=== PATIENT | female | born 1970 | race Caucasian/White ===

== ENCOUNTER 2018-05-02 17:07 | Emergency (ER) | payer OTHER, MEDICAID ==
[2018-05-02 18:08] LABS: ADD MAN DIFF? NO
[2018-05-02 18:21] LABS: BASOPHILS % 0.4 % (0.0-2.0); EOSINOPHILS # 0.1 10^3/ul (0.0-0.5); EOSINOPHILS % 0.9 % (0.0-7.0); HEMATOCRIT 39.9 % (37.0-47.0); HEMOGLOBIN 13.7 g/dl (12.0-16.0); LYMPHOCYTES # 1.8 10^3/ul (0.8-2.9); LYMPHOCYTES % 33.5 % (15.0-51.0); MEAN CORPUSCULAR HEMOGLOBIN 30.6 pg (29.0-33.0); MEAN CORPUSCULAR HGB CONC 34.3 g/dl (32.0-37.0); MEAN CORPUSCULAR VOLUME 89.3 fl (82.0-101.0); MEAN PLATELET VOLUME 9.3 fl (7.4-10.4); MONOCYTE # 0.5 10^3/ul (0.3-0.9); MONOCYTES % 8.6 % (0.0-11.0); NEUTROPHILS % 55.9 % (39.0-77.0); PLATELET COUNT 268 10^3/UL (140-415); RED BLOOD COUNT 4.47 10^6/ul (4.20-5.40); RED CELL DISTRIBUTION WIDTH 11.8 % (11.5-14.5)
[2018-05-02 18:21] LABS: WHITE BLOOD COUNT 5.4 10^3/ul (4.8-10.8)
[2018-05-02 18:25] LABS: PROTIME 13.3 Sec (11.9-14.9)
[2018-05-02 18:26] LABS: PARTIAL THROMBOPLASTIN TIME 30.6 Sec (23.0-35.0)
[2018-05-02 18:29] LABS: ANION GAP 14 (8-16); BLOOD UREA NITROGEN 11 mg/dl (7-20); CALCIUM 9.8 mg/dl (8.4-10.2); CARBON DIOXIDE 27 mmol/L (21-31); CHLORIDE 100 mmol/L (97-110); CHOL/HDL RATIO 4.8 RATIO; CHOLESTEROL 230 mg/dl (100-200); GLUCOSE 90 mg/dl (70-220); HDL CHOLESTEROL 47 mg/dl (37-92); LDL CHOLESTEROL,CALCULATED 150 mg/dl; POTASSIUM 3.9 mmol/L (3.5-5.1); SODIUM 137 mmol/L (135-144); TRIGLYCERIDES 166 mg/dl (0-149)
[2018-05-02 18:40] LABS: TROPONIN-I < 0.012 ng/ml (0.000-0.120)
[2018-05-02 18:41] LABS: HEMOGLOBIN A1C 5.1 % (0-5.9)
[2018-05-02] MEDS: METOCLOPRAMIDE 10 MG INJ IV (19:24)
[2018-05-02] MEDS: KETOROLAC 30 MG INJ IV (19:25)
== END 2018-05-02 20:07 | disposition home or self-care (01) ==
LOC: E/R 17:07
DX: R20.2 Paresthesia of skin (principal); R51 Headache; I63.9 Cerebral infarction, unspecified; Z91.010 Allergy to peanuts
CPT/HCPCS: 36415; 70450; 71045; 80048; 80061; 83036; 84484; 84703; 85025; 85610; 85730; 93005; 96374; 96375; 99285-25